=== PATIENT | female | born 1965 | race Caucasian/White ===

== ENCOUNTER 2017-04-16 07:03 | Inpatient (IN) | payer BC ==
[2017-04-15 13:36] LABS: BILIRUBIN,URINE NEGATIVE (NEGATIVE); BLOOD, URINE 3+ (NEGATIVE); CLARITY/URINE SL HAZY (CLEAR); COLOR,URINE YELLOW (YELLOW); GLUCOSE,URINE NEGATIVE (NEGATIVE); KETONES,URINE NEGATIVE (NEGATIVE); LEUKOCYTE ESTERASE ,URINE 2+ (NEGATIVE); NITRITE, URINE NEGATIVE (NEGATIVE); PH,URINE 6.5 (5.0-8.0); PROTEIN URINE NEGATIVE (NEGATIVE); UROBILINOGEN,URINE 0.2 (0.2-1.0)
[2017-04-15 13:42] LABS: BASOPHILS # (AUTO) 0.1 K/uL (0.0-0.2); BASOPHILS % (AUTO) 0.8 % (0.0-2.0); EOSINOPHILS % (AUTO) 0.1 % (0.0-4.0); HEMATOCRIT 44.7 % (36-48); HEMOGLOBIN 14.1 g/dL (12.0-16.0); LYMPHOCYTES # (AUTO) 1.7 K/uL (1.0-5.5); LYMPHOCYTES % (AUTO) 26.7 % (20.5-51.5); MEAN CORPUSCULAR HEMOGLOBIN 28 pg (27-31); MEAN CORPUSCULAR HGB CONC 32 % (32-36); MEAN CORPUSCULAR VOLUME 87 fL (79.0-98.0); MONOCYTES # (AUTO) 0.6 K/uL (0.0-1.0); MONOCYTES % (AUTO) 9.3 % (1.7-9.3); NEUTROPHILS % (AUTO) 63.1 % (40.0-70.0); PLATELET COUNT (AUTO) 277 K/uL (130-430); RED BLOOD CELL COUNT(AUTO) 5.14 MIL/uL (4.2-6.2); RED CELL DISTRIBUTION WIDTH 14.7 % (9.0-15.0); WHITE BLOOD COUNT (AUTO) 6.4 K/uL (4.8-10.8)
[2017-04-15 13:44] LABS: CALCIUM 8.9 mg/dL (8.4-11.0); CREATININE 0.5 mg/dL (0.55-1.30); POTASSIUM 3.6 mmol/L (3.5-5.1)
[2017-04-15 13:48] LABS: BACTERIA,URINE MODERATE /HPF (None Seen)
[2017-04-15 13:49] LABS: MUCUS,URINE 1+ /LPF (None Seen)
[~2017-04-16] VITALS: Ht 152.4 cm; Wt 56.7 kg
[2017-04-16] MEDS ORDERED: CEFAZOLIN 1 GM IVPB PREMIX 50 ML IV ONE (07:32)
[2017-04-16] MEDS ORDERED: CEFAZOLIN SOD 1 GM/ ISO 50 ML PREMIX IV ONE (07:45)
[2017-04-16] MEDS ORDERED: EXCED PO (08:27)
[2017-04-16] MEDS ORDERED: [UNRECOGNIZED DRUG - CODE] PO (08:27)
[2017-04-16] MEDS ORDERED: VITD400 PO (08:27)
[2017-04-16] MEDS ORDERED: IRON1CAP PO (08:27)
[2017-04-16] MEDS ORDERED: PROPOFOL 200MG/ 20ML VIAL (DIPRIVAN) IV ONE (09:06)
[2017-04-16] MEDS ORDERED: fentaNYL CITRATE/PF 100 MCG/2 ML AMP IVP ONE (09:06)
[2017-04-16] MEDS ORDERED: LR 1,000 ML IV.SOLN IV ONE (09:06)
[2017-04-16] MEDS ORDERED: MORPHINE SULFATE 10MG/10ML PF AMP EP ONE (09:06)
[2017-04-16] MEDS ORDERED: SEVOFLURANE 15 MIN GAS INH ONE (09:06)
[2017-04-16] MEDS ORDERED: NS 1000 ML BAG IV ONE (09:06)
[2017-04-16] MEDS ORDERED: METOCLOPRAMIDE HCL 10 MG/2 ML VIAL IVP ONE (09:06)
[2017-04-16] MEDS ORDERED: NS 100 ML BAG IV ONE (09:06)
[2017-04-16] MEDS ORDERED: OXYTOCIN 10 UNIT/ML VIAL IV ONE (09:06)
[2017-04-16] MEDS ORDERED: GLYCOPYRROLATE 0.2 MG/ML VIAL IJ ONE (09:06)
[2017-04-16] MEDS ORDERED: DEXAMETHASONE SOD PHOSPHATE 4 MG/ML VIAL IVP ONE (09:06)
[2017-04-16] MEDS ORDERED: MIDAZOLAM HCL 5 MG/5 ML VIAL IVP ONE (09:06)
[2017-04-16] MEDS ORDERED: BUPIVACAINE /PF 0.5% 30 ML VIAL INJ ONE (09:06)
[2017-04-16] MEDS ORDERED: NEOSTIGMINE METHYLSULFATE 1 MG/ML, 10 ML VIAL IVP ONE (09:06)
[2017-04-16] MEDS ORDERED: NS IRRIG SOLN 1000 ML IR ONE (09:06)
[2017-04-16] MEDS ORDERED: LR 1,000 ML IV ONE (10:33)
[2017-04-16] MEDS ORDERED: fentaNYL CITRATE/PF 100 MCG/2 ML AMP IVP PRN (10:45)
[2017-04-16] MEDS ORDERED: ONDANSETRON HCL 4 MG/2 ML VIAL IVP PRN ×3 (10:45→11:00)
[2017-04-16] MEDS ORDERED: NALBUPHINE HCL 10 MG/ML AMP IVP PRN (10:45)
[2017-04-16] MEDS ORDERED: KETOROLAC TROMETHAMINE 30 MG VIAL IM PRN (10:45)
[2017-04-16] MEDS ORDERED: NALOXONE HCL 0.4 MG/ML AMP (NARCAN) IVP PRN (10:45)
[2017-04-16] MEDS ORDERED: ePHEDrine sulfate 50 MG/ML VIAL IVP PRN (10:45)
[2017-04-16] MEDS ORDERED: LR 1,000 ML IV SCH (10:50)
[2017-04-16] MEDS ORDERED: OXYCODONE/ACETAMINOPHEN 5-325 TABLET PO PRN (11:00)
[2017-04-16 11:10] VITALS: BP_SYST 130
[2017-04-16] MEDS ORDERED: KETOROLAC TROMETHAMINE 30 MG VIAL IVP ONE (14:00)
[2017-04-16] MEDS ORDERED: KETOROLAC TROMETHAMINE 30 MG VIAL ONE (14:03)
[2017-04-16] MEDS: DIPHENHYDRAMINE INJ 50 MG/ML VIAL IVP PRN ×2 (15:28→23:19)
[2017-04-16] MEDS: OXYTOCIN IV SCH (16:24)
[2017-04-16] MEDS: LR IV SCH (16:24)
[2017-04-16] MEDS: CEFAZOLIN 1 GM IVPB PREMIX 50 ML IV SCH (18:12)
[2017-04-16] MEDS: KETOROLAC TROMETHAMINE 30 MG VIAL IVP PRN (19:06)
[2017-04-16] MEDS ORDERED: TEMAZEPAM 15 MG CAPSULE PO PRN (21:00)
[2017-04-16] MEDS ORDERED: SENNOSIDES/DOCUSATE SODIUM 1 TAB TABLET(SENOKOT-S) PO PRN (21:00)
[2017-04-17] MEDS: KETOROLAC TROMETHAMINE 30 MG VIAL IVP PRN ×2 (00:32→05:28)
[2017-04-17] MEDS: LR IV SCH (00:53)
[2017-04-17] MEDS: OXYTOCIN IV SCH (00:53)
[2017-04-17] MEDS: CEFAZOLIN 1 GM IVPB PREMIX 50 ML IV SCH (02:03)
[2017-04-17 07:55] LABS: BASOPHILS % (AUTO) 0.2 % (0.0-2.0); EOSINOPHILS % (AUTO) 0.3 % (0.0-4.0); HEMATOCRIT 26.2 % (36-48); HEMOGLOBIN 8.6 g/dL (12.0-16.0); LYMPHOCYTES # (AUTO) 1.5 K/uL (1.0-5.5); LYMPHOCYTES % (AUTO) 19.8 % (20.5-51.5); MEAN CORPUSCULAR HEMOGLOBIN 28 pg (27-31); MEAN CORPUSCULAR HGB CONC 33 % (32-36); MEAN CORPUSCULAR VOLUME 86 fL (79.0-98.0); MONOCYTES # (AUTO) 0.7 K/uL (0.0-1.0); MONOCYTES % (AUTO) 9.8 % (1.7-9.3); NEUTROPHILS # (AUTO) 5.3 K/uL (1.8-7.7); NEUTROPHILS % (AUTO) 69.9 % (40.0-70.0); PLATELET COUNT (AUTO) 160 K/uL (130-430); RED BLOOD CELL COUNT(AUTO) 3.05 MIL/uL (4.2-6.2); RED CELL DISTRIBUTION WIDTH 14.3 % (9.0-15.0); WHITE BLOOD COUNT (AUTO) 7.5 K/uL (4.8-10.8)
[2017-04-17] MEDS: OXYCODONE/ACETAMINOPHEN 5-325 TABLET PO PRN ×2 (12:06→21:49)
[2017-04-17] MEDS: SIMETHICONE 80 MG TAB.CHEW PO SCH (15:38)
[2017-04-17] MEDS ORDERED: ACETAMINOPHEN 325 MG TABLET ONE (18:28)
[2017-04-17] MEDS ORDERED: ACETAMINOPHEN 325 MG TABLET PO PRN (18:30)
[2017-04-18] MEDS ORDERED: SIMETHICONE 80 MG TAB.CHEW PO ONE (03:30)
[2017-04-18] MEDS: OXYCODONE/ACETAMINOPHEN 5-325 TABLET PO PRN ×2 (03:34→08:00)
[2017-04-18] MEDS: SIMETHICONE 80 MG TAB.CHEW PO SCH ×3 (03:35→10:11)
== END 2017-04-18 10:25 | disposition home or self-care (01) | DRG 743 ==
LOC: SDS 07:03 → SMU 07:04 → SPU 12:23 → SDS 04-17 15:08
PROVIDERS: ADMIT Specialist; ATTEND Specialist
PROC: 0U5B0ZZ Destruction of Endometrium, Open Approach (ICD-10-PCS; 2017-04-16)
PROC: 0UB90ZZ Excision of Uterus, Open Approach (ICD-10-PCS; principal; 2017-04-16 12:00)
DX: D25.9 Leiomyoma of uterus, unspecified (principal); N73.6 Female pelvic peritoneal adhesions (postinfective); N80.9 Endometriosis, unspecified; Z78.0 Asymptomatic menopausal state
CPT/HCPCS: 36415; 71020-TC; 80048; 81000-TC; 84703; 85025; 87081; 88305; 93005; J0690; J1100; J1200; J1885; J2250; J2274; J2590; J2704; J2710; J2765; J3010; J3490; J7030; J7120